=== PATIENT | female | born 1985 | race Caucasian/White ===

== ENCOUNTER 2024-05-16 16:06 | Emergency (ER) | payer MEDICAID ==
[~2024-05-16] VITALS: Ht 152.4 cm; Wt 105.3 kg
[2024-05-16 17:01] LABS: BASO # 0.02 K/mm3 (0.02-0.10); EOS # 0.42 K/mm3 (0.04-0.40); EOS % 4.8 % (1.0-5.0); HEMOGLOBIN 12.7 g/dL (12.5-16.0); LYMPH# 1.92 K/mm3 (1.50-4.00); MEAN CELL VOLUME 93 fl (78-100); MEAN CORPUSCULAR HEMOGLOBIN 31 pg (27-31); MEAN CORPUSCULAR HGB CONC 33 g/dL (33-37); MEAN PLATELET VOLUME 10.4 fl (7.4-10.4); MONO # 0.35 K/mm3 (0.20-0.80); NEU # 5.97 K/mm3 (1.40-6.50); PLATELET COUNT 317 K/mm3 (130-400); RED BLOOD COUNT 4.11 M/mm3 (4.10-5.30); RED CELL DISTRIBUTION WIDTH 13.1 % (11.5-14.5); WHITE BLOOD COUNT 8.7 K/mm3 (4.8-10.8)
[2024-05-16 17:08] LABS: ALBUMIN 4.4 g/dL (3.5-5.0)
[2024-05-16 17:10] LABS: CALCIUM 9.6 mg/dL (8.3-10.5)
[2024-05-16 17:11] LABS: TOTAL PROTEIN 8.4 g/dL (6.4-8.3)
[2024-05-16 17:32] LABS: TOTAL BILIRUBIN 1.7 mg/dL (0.2-1.2)
[2024-05-16] MEDS ORDERED: FLUTICASONE P15.8 ML NS (17:34)
[2024-05-16 17:40] VITALS: BP 137/91
== END 2024-05-16 17:40 | disposition home or self-care (01) ==
LOC: ED 16:06
PROVIDERS: Physician Assistant
DX: R05.3 Chronic cough (principal)